=== PATIENT | female | born 1975 | race Caucasian/White ===

== ENCOUNTER 2018-08-27 00:41 | Emergency (ER) | payer SELFPAY ==
[~2018-08-27] VITALS: Ht 157.5 cm; Wt 54.0 kg
[2018-08-27 00:43] VITALS: BP 148/86
--- NOTE | 2018-08-27 00:44 | NUR ---
PT MARIBETH SHARPS. TAKEN TO BED 4
--- NOTE | 2018-08-27 00:54 | NUR ---
Dr. Sanchez evaluating patient at bedside.
[2018-08-27] MEDS ORDERED: NACL 0.9% 1,000 ML IV ONE (01:00)
[2018-08-27] MEDS ORDERED: ONDANSETRON 4 MG/2 ML VIAL IVP ONE (01:00)
--- NOTE | 2018-08-27 01:00 | NUR ---
42/F biba for evaluation of vomiting s/p drug ingestion. Per boyfriend, pt is from [place] and they are visiting. Boyfriend states they stopped at a souvenir shop to get some medication for pt's sinus pain and arthritis pain. Pt was sent to a marijuana dispencery shop where pt was recommened to take a "small cake" and given a topical cream. Pt ingested the whole cake per boyfriend. Per boyfriend pt has never taken any drugs. Denies medical hx. Denies recreational drug use. Denies allergies. Boyfriend states that they went to [facility] afterwards and pt states she did not feel well and vomitted which is where he called 911. Pt arrived to ED awake, eyes closed, non verbal at this time not answering questions. VSS. Pt noted with shakiness intermittently. Warm blankets provided.
--- NOTE | 2018-08-27 02:09 | NUR ---
Pt pending discharge. Pt unable to ambulate at this time. Dr. Sanchez aware and ordered pt to allow pt to sleep until able to walk. Boyfriend at bedside.
--- NOTE | 2018-08-27 02:09 | NUR ---
IV removed, catheter intact and site benign. Applied folded 4x4 gauze and tape to stop bleeding.
--- NOTE | 2018-08-27 03:31 | NUR ---
Pt ambulated to restroom with assistance of boyfriend. Dr. Sanchez made aware.
--- NOTE | 2018-08-27 04:11 | NUR ---
Pt more awake, AOX4. Dr. Sanchez re-evaluating patient, NAD noted. VSS.
--- NOTE | 2018-08-27 04:12 | NUR ---
Patient discharged with v/s stable. Written and verbal after care instructions given and explained. Patient alert, oriented and verbalized understanding of instructions. Patient wheel chair assisted to car. All questions addressed prior to discharge. ID band removed. Patient advised to follow up with PMD. Rx of Azithromycin, Zofran and Flonase given. Patient educated on indication of medication including possible reaction and side effects. Opportunity to ask questions provided and answered.
[2018-08-27 04:13] VITALS: BP 125/65
== END 2018-08-27 04:12 | disposition home or self-care (01) ==
LOC: MED 00:41
DX: R11.2 Nausea with vomiting, unspecified (principal); T40.7X5A Adverse effect of cannabis (derivatives), initial encounter; J32.9 Chronic sinusitis, unspecified; M06.9 Rheumatoid arthritis, unspecified; Y92.89 Other specified places as the place of occurrence of the external cause
CPT/HCPCS: 96361; 96374; 99283; J2405; J7030